=== PATIENT | female | born 1955 | race Caucasian/White ===

== ENCOUNTER → 2021-01-09 | Outpatient (CLI) | payer MEDICARE, BC ==
--- NOTE | 2021-01-09 10:43 | REP ---
INDICATION: LT KNEE PAIN ? PATELLA FX VS ARTICULAR SURFACE. COMPARISON: None TECHNIQUE: Noncontrast enhanced helical technique using 3 mm increments and reconstructed in both sagittal and coronal planes. FINDINGS: There has been previous patellar ORIF. The bones are demineralized. There is no evidence of an acute fracture. There is mild to moderate tricompartmental narrowing. Tiny bilateral marginal osteophytes are seen arising from both medial and lateral compartments. There is no evidence of an acute fracture. There is no evidence of a gross joint effusion. IMPRESSION: Chronic changes as described above. <Electronically signed by Saleem Santos > 01/09/21 [id number]
== END ==
LOC: M RAD 09:24
PROVIDERS: ATTEND Physician Assistant
DX: M17.12 Unilateral primary osteoarthritis, left knee (principal); M25.562 Pain in left knee

== ENCOUNTER → 2022-04-08 | Outpatient (CLI) | payer MEDICARE, BC | LOC: M LABSMTC 10:14 | PROVIDERS: ATTEND Orthopaedic Surgery Orthopaedic Trauma | DX: Z01.818 Encounter for other preprocedural examination (principal); S82.042K Displaced comminuted fracture of left patella, subsequent encounter for closed fracture with nonunion ==